=== PATIENT | female | born 1980 | race Caucasian/White ===

== ENCOUNTER → 2016-12-16 | Outpatient (CLI) | payer OTHER ==
--- NOTE | 2016-12-21 12:31 | RADIOLOGY REPORT PS360 ---
DIG MAMM-SCREEN JORGE W/CAD CAD Screening ORDERING PHYSICIAN : Dexter Lowe MD PATIENT AGE: 36 years GENDER: Female COMPARISON: Previous mammograms: Baseline study with no previous for comparison INDICATION: Routine screening 36-year-old. No hormones. No new complaints. Family history: sibling sister with breast cancer age 45. 3 Paternal aunt with breast cancer. TECHNIQUE: Standard CC and MLO images were obtained. R2 CAD reviewed. FINDINGS: Moderate density breast with scattered mild to moderate fibroglandular elements both breast. RIGHT BREAST: 15 mm mildly asymmetric area of most likely fibroglandular density is seen at the inferior left breast, 3-4 cm deep to the areola. Again I strongly favor this is an island of parenchymal density- with this region measuring up to 15 mm AP. Given the patient's young age & positive family history, to be cautious I would suggest the patient return for spot views of this area(CC, 90 degree and MLO spot views]). If the density in this region persistent on the spot views then ultrasound may be warranted.. This area is most likely benign feature and mass is at views not urgent. They can be performed over the next few weeks at patient's convenience. LEFT BREAST: No focal areas of concern are seen at the left breast. Is a similar less dense more definitely fibroglandular appearing area at the inferior left breast. Not of concern can be followed. ... IMPRESSION: ... Baseline Mammogram... 1. RIGHT BREAST:. Slight asymmetric area of most likely fibroglandular tissue, summation shadow at the inferior right breast.. However to be cautious given the positive family history I would suggest patient return for spot views of this area to better confirm baseline. 2. Left breast: No areas of concern BI-RADS CATEGORY: 0_Incomplete: Need additional imaging RECOMMENDED FOLLOWUP: ADD ADDITIONAL IMAGING (A letter has been sent to the patient regarding results of the study.)
== END ==
LOC: RAD 08:30
DX: Z12.31 Encounter for screening mammogram for malignant neoplasm of breast (principal)
CPT/HCPCS: G0202

== ENCOUNTER → 2017-08-19 | Outpatient (CLI) | payer OTHER ==
[2017-08-19 11:19] LABS: BUN 10 mg/dL (7-18)
[2017-08-19 11:33] LABS: GFR (ESTIMATED) 94 ML/MIN (59-)
[2017-08-19 14:50] LABS: HEMOGLOBIN 13.1 g/dL (12.2-16.2); LYMPH # 1.5 K/mm3 (0.7-4.5); LYMPH % 23.2 % (10-50.0)
[2017-08-20 06:37] LABS: Thyroid Peroxidase (TPO) Ab 12 IU/mL (0-34); Vitamin D, 25-Hydroxy 46.5 ng/mL (30.0-100.0)
[2017-08-20 09:39] LABS: RA Latex Turbid. <10.0 IU/mL (0.0-13.9)
[2017-08-20 16:37] LABS: Albumin 3.8 g/dL (2.9-4.4); Alpha-1-Globulin 0.3 g/dL (0.0-0.4); Alpha-2-Globulin 0.8 g/dL (0.4-1.0); Gamma Globulin 1.2 g/dL (0.4-1.8); Protein, Total 7.2 g/dL (6.0-8.5)
[2017-08-21 03:36] LABS: CCP Antibodies IgG/IgA 7 units (0-19)
== END ==
LOC: LAB 09:35
PROVIDERS: Internal Medicine Rheumatology; Nurse Practitioner Family
DX: M25.649 Stiffness of unspecified hand, not elsewhere classified (principal); E55.9 Vitamin D deficiency, unspecified; R51 Headache; R00.2 Palpitations